=== PATIENT | female | born 1955 | race Caucasian/White ===

== ENCOUNTER → 2017-02-28 | Outpatient (CLI) | payer MEDICAID ==
--- NOTE | 2017-03-01 07:30 | BD ---
EXAMINATION TYPE: MG DEXA axial skeleton. DATE OF EXAM: 02/28/2017 COMPARISON: NONE CLINICAL HISTORY: Height: 64 Weight: 197.1 FRAX RISK QUESTIONS: Alcohol (3 or more units per day): no Family History (Parent hip fracture): no Glucocorticoids (More than 3mos): no (Ex: prednisone, prednisolone, methylprednisolone, dexamethasone, and hydrocortisone). History of Fracture in Adulthood: no Secondary Osteoporosis: 1. Type 1 Diabetes: no 2. Hyperthyroidism: no 3. Menopause before 45: yes 4. Malnutrition: no 5. Chronic liver disease: no Rheumatoid Arthritis: no Current Tobacco Use: no RISK FACTORS HISTORY OF: Surgery to Spine/Hip(right/left)/Wrist (right/left): no Family History of Osteoporosis: no Active: yes Diet low in dairy products/other sources of calcium: no Postmenopausal woman: hysterectomy age 42 lost more than 2 inches in height since high school: no Frequent falls: no Poor Health: no Hyperparathyroidism: no Adrenal Insufficiency: no MEDICATIONS: lisinopril, vitamins Prednisone or other steroids: asthma meds Additional History: EXAM MEASUREMENTS: Bone mineral densitometry was performed using the [employer] System. Bone mineral density as measured about the Lumbar spine is: ----- L1-L4(G/cm2): 1.417 T Score Values are as follows: ----- L2: 1.5 ----- L3: 2.3 ----- L4: 2.6 ----- L1-L4: 2.0 Bone mineral density has: increased 3.3 % since study of: 11.19.2012 Bone mineral density about the R hip (g/cm2): 1.208 Bone mineral density about the L hip (g/cm2): 1.261 T Score values are as follows: -----R Neck: 1.2 -----L Neck: 1.6 -----R Total: 1.7 -----L Total: 2.2 Bone mineral density has: decreased -5.3 % since study of: 11.19.2012 IMPRESSION: Normal (Values between +1 and -1 indicate normal bone mass). Consider repeating this study in 5 year s or sooner if there is some new clinical indication. NOTE: T-SCORE=SD OF THE YOUNG ADULT MEAN.
--- NOTE | 2017-03-01 09:25 | MM ---
Reason for exam: screening (asymptomatic). Last mammogram was performed 2 years and 3 months ago. History: Patient is postmenopausal. Family history of breast cancer in paternal aunt at age 60 and breast cancer in maternal cousin at age 44. Cancelled Right Needle Localization of the right breast, March 23, 2007. Benign right mammotome panel of the right breast, March 21, 2007. Benign right mammotome panel of the right breast, March 10, 2006. Physical Findings: A clinical breast exam by your physician is recommended on an annual basis and results should be correlated with mammographic findings. MG 3D Screening Mammo W/Cad Bilateral CC and MLO view(s) were taken. Prior study comparison: December 08, 2014, right breast MG 3d diag mammo w/cad RT. January 14, 2014, left breast MG work up mamm w CAD LT. Finding: There is a 0.3 mm mass in the upper outer quadrant of the right breast. Previous mammotome biopsy in the right breast. ASSESSMENT: Incomplete: need additional imaging evaluation, BI-RAD 0 RECOMMENDATION: Special view mammogram of the right breast. If lesion persists on supplemental views, image directed ultrasound is recommended. [facility] will attempt to contact patient to return for supplemental views and ultrasound if indicated.
== END | disposition home or self-care (01) ==
LOC: RADMAMWWP 15:07
PROVIDERS: ATTEND Obstetrics & Gynecology
DX: Z12.31 Encounter for screening mammogram for malignant neoplasm of breast (principal); Z13.820 Encounter for screening for osteoporosis
CPT/HCPCS: 77063; 77067; 77080

== ENCOUNTER → 2017-03-08 | Outpatient (CLI) | payer MEDICAID ==
--- NOTE | 2017-03-08 08:32 | MM ---
Reason for exam: additional evaluation requested from abnormal screening. Last mammogram was performed less than 1 month ago. History: Patient is postmenopausal. Family history of breast cancer in paternal aunt at age 60 and breast cancer in maternal cousin at age 44. Cancelled Right Needle Localization of the right breast, March 23, 2007. Benign right mammotome panel of the right breast, March 21, 2007. Benign right mammotome panel of the right breast, March 10, 2006. Physical Findings: Nurse did not find any significant physical abnormalities on exam. MG 3D Work Up W/Cad RT CC, MLO, LM, spot compression CC, and spot compression MLO view(s) were taken of the right breast. Prior study comparison: February 28, 2017, bilateral MG 3d screening mammo w/cad. December 08, 2014, right breast MG 3d diag mammo w/cad RT. December 08, 2014, right breast US breast RT. January 01, 2014, bilateral MG screening mammo w CAD. November 19, 2012, bilateral digital screening mammo w/CAD. September 13, 2010, bilateral digital screening mammo w/CAD. There are scattered fibroglandular densities. Previous mammotome biopsy within the right breast. The 10 o'clock 4mm circumscribed mass is noted to be smaller from 2010. A 6 month follow up is recommended. These results were verbally communicated with the patient and result sheet given to the patient on 03/08/17. ASSESSMENT: Probably benign, BI-RAD 3 RECOMMENDATION: Follow-up diagnostic mammogram of the right breast in 6 months.
== END | disposition home or self-care (01) ==
LOC: RADMAMWWP 06:58
PROVIDERS: ATTEND Obstetrics & Gynecology
DX: R92.8 Other abnormal and inconclusive findings on diagnostic imaging of breast (principal); Z80.3 Family history of malignant neoplasm of breast
CPT/HCPCS: 77065; G0279

== ENCOUNTER → 2017-07-19 | Outpatient (CLI) | payer OTHER ==
--- NOTE | 2017-07-19 10:56 | XR ---
EXAMINATION TYPE: XR hand complete RT DATE OF EXAM: 07/19/2017 CLINICAL HISTORY: First digit right hand pain after fall. TECHNIQUE: Frontal, lateral and oblique images of the right hand are obtained. COMPARISON: None. FINDINGS: There is no acute fracture/dislocation evident in the right hand. The joint spaces in the right hand demonstrate mild narrowing of the distal interphalangeal joints and first metacarpal phala ngeal joint. The overlying soft tissue appears unremarkable. IMPRESSION: There is no acute fracture or dislocation in the right hand.
--- NOTE | 2017-07-19 10:57 | XR ---
EXAMINATION TYPE: XR shoulder complete RT DATE OF EXAM: 07/19/2017 CLINICAL HISTORY: Right shoulder pain after fall TECHNIQUE: Three views of the right shoulder are obtained. COMPARISON: None. FINDINGS: There is no acute fracture/dislocation evident in the right shoulder. Mild right acromioc lavicular arthropathy is seen as joint space narrowing and marginal osteophytes. The acromioclavicula r and glenohumeral joint spaces appear intact. The visualized ribs are intact and unremarkable. IMPRESSION: There is no acute fracture or dislocation in the right shoulder.
== END | disposition home or self-care (01) ==
LOC: RADXRMAIN 10:25
PROVIDERS: ATTEND Emergency Medicine
DX: S40.011A Contusion of right shoulder, initial encounter (principal); S60.221A Contusion of right hand, initial encounter; M65.30 Trigger finger, unspecified finger

== ENCOUNTER → 2017-11-28 | Outpatient (CLI) | payer MEDICAID | END | disposition home or self-care (01) | LOC: LABWHC1 08:16 | PROVIDERS: ATTEND Internal Medicine | DX: G25.79 Other drug induced movement disorders (principal) | CPT/HCPCS: 36415; 84260 ==

== ENCOUNTER 2017-12-04 11:19 | Day surgery (SDC) | payer MEDICAID, OTHER ==
[2017-11-28 12:15] VITALS: BMI 32.4
[~2017-12-04 11:19] MED LIST: DEXAMETHASONE SOD PHOSPHATE 10 MG/ML 1 ML VIAL IV ONE; HYDROmorphone 0.5 MG/0.5 ML SYRINGE IVP PRN; LACTATED RINGERS 1,000 ML IV SCH; MIDAZOLAM 2 MG/2 ML VIAL IV PRN; ONDANSETRON 4 MG/2 ML VIAL IVP ONE; Pre Op ABX Message 1 EACH MISC MISCELLANE ONE; SCOPOLAMINE 1.5MG/72HR PATCH TRANSDERM ONE
[2017-12-04 11:49] VITALS: TEMP 97.9
[2017-12-04] MEDS ORDERED: LIDOCAINE 1% 20 ML VIAL (10MG/ML) FOR IV START INTRADERMA ONE (12:00)
[2017-12-04] MEDS ORDERED: LIDOCAINE 2% INJ 20 MG/ML SQ ONE ×2 (12:22→12:57)
[2017-12-04] MEDS ORDERED: ROPIVACAINE 5 MG/ML 30 ML VIAL MISCELLANE ONE ×2 (12:22→12:57)
[2017-12-04] MEDS ORDERED: MIDAZOLAM 2 MG/2 ML VIAL ONE (12:49)
[2017-12-04] MEDS ORDERED: PROPOFOL 10 MG/ML 20 ML VIAL IV ONE (12:49)
[2017-12-04] MEDS ORDERED: fentaNYL (PF) 50 MCG/ML 2 ML AMP ONE (12:49)
[2017-12-04 13:16] VITALS: RESP 18
[2017-12-04 13:49] VITALS: BP 127/78; PULSE 78
--- NOTE | 2017-12-10 19:23 | OP ---
OPERATIVE REPORT PROCEDURE DATE: 12/04/2017 PREOPERATIVE DIAGNOSIS: Right trigger thumb. POSTOPERATIVE DIAGNOSIS: Right trigger thumb. PROCEDURE PERFORMED: Right trigger thumb release. PROCEDURE: The patient was taken to the operative suite given intravenous sedation. I then performed a digital block of the thumb using combination Xylocaine and Marcaine both without Epinephrine. The hand was then prepped and draped in the usual manner. The hand was elevated, exsanguinated. The cuff was inflated 250 mmHg. A transverse incision was made in the proximal skin crease of the thumb. Blunt dissection was taken through the subcutaneous tissue to identify the neurovascular bundles. They were kept in view and gently retracted out of harm?s way while a longitudinal release of the A1 zayda was performed. The flexor pollicis longus was examined and slight swelling was noted but the tendon was intact. The tendon was gently retracted from the wound to ensure no adhesion. The wound was then thoroughly irrigated, tourniquet released. Hemostasis was acquired and the skin was closed with 5-0 nylon suture. Soft bulky dressing applied. The patient was taken to the recovery room in satisfactory condition. MMODL / IJN: [id number] /
== END 2017-12-04 14:01 | disposition home or self-care (01) ==
LOC: OR 11:19
PROVIDERS: ATTEND Orthopaedic Surgery Hand Surgery
DX: M65.311 Trigger thumb, right thumb (principal); I10 Essential (primary) hypertension; J45.909 Unspecified asthma, uncomplicated; Z79.51 Long term (current) use of inhaled steroids; Z79.899 Other long term (current) drug therapy; Z90.710 Acquired absence of both cervix and uterus; Z90.49 Acquired absence of other specified parts of digestive tract; Z87.891 Personal history of nicotine dependence
CPT/HCPCS: 26055; J2001; J2250; J1100; J2405; J3010; J2795; J2704

== ENCOUNTER 2017-12-17 09:50 | Emergency (ER) | payer MEDICAID ==
[2017-12-17 10:00] VITALS: RESP 18
[2017-12-17] MEDS ORDERED: ORPHENADRINE 30 MG/ML 2 ML VIAL IM STA (10:32)
[2017-12-17] MEDS ORDERED: KETOROLAC 60 MG/2 ML VIAL IM STA (10:32)
--- NOTE | 2017-12-17 10:34 | ED ---
Lower Extremity Injury HPI - General Chief Complaint: Extremity Injury, Lower Stated Complaint: RT KNEE PAIN/INJURY Time Seen by Provider: 12/17/17 10:07 Source: patient, RN notes reviewed, old records reviewed Mode of arrival: ambulatory Limitations: no limitations - History of Present Illness Initial Comments: Patient is a 8-year-old female presents emergency department today with chief complaint of right knee pain and leg pain. Patient reports that symptoms started abruptly 4 days ago when she was getting out of her truck. She reports that she'll pulling sensation in her leg. She states the pain has been persistent since that time. Yesterday when she went to get up and her truck after going to she felt a sharp pain that radiated down her entire leg. 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 She denies any redness or swelling to the leg. Patient states that she has had no fevers or chills. No shortness of breath or chest pains. She denies any peripheral paresthesias. Patient relates that she has had no history of blood clots in the past. Recent right thumb trigger finger surgery by Dr. Grande. - Related Data Home Medications Medication Instructions Recorded Confirmed Budesonide/Formoterol Fumarate 1 puff INHALATION RT-DAILY 06/04/15 12/04/17 [Symbicort 80-4.5 Mcg Inhaler] Lisinopril [Zestril] 20 mg PO DAILY 06/04/15 12/04/17 Omeprazole 20 mg PO BID PRN 06/04/15 12/04/17 Ibuprofen [Motrin] 200 - 400 mg PO Q4-6H PRN 06/25/15 12/04/17 Acetaminophen [Tylenol Extra 500 - 1,000 mg PO Q4-6H PRN 11/28/17 12/04/17 Strength] Multivitamins, Thera [Multivitamin 1 tab PO DAILY 11/28/17 12/04/17 (formulary)] Previous Rx's Medication Instructions Recorded Cyclobenzaprine [Flexeril] 10 mg PO TID #12 tab 12/17/17 traMADol HCL [Ultram] 50 mg PO Q4-6H #12 tab 12/17/17 Allergies Allergy/AdvReac Type Severity Reaction Status Date / Time No Known Allergies Allergy Verified 12/17/17 10:00 Review of Systems ROS Statement: Those systems with pertinent positive or pertinent negative responses have been documented in the HPI. ROS Other: All systems not noted in ROS Statement are negative. Past Medical History Past Medical History: Asthma, GERD/Reflux, Hypertension, Musculoskeletal Disorder Additional Past Medical History / Comment(s): HX - High seritonin levels (was tested at [facility] for carcinoid tumor, negative findings) 2002. RT THUMB TRIGGER FINGER, WEARING BRACE. VARICOSE VEIN RLE. History of Any Multi-Drug Resistant Organisms: None Reported Past Surgical History: Bladder Surgery, Cholecystectomy, Hysterectomy, Orthopedic Surgery, Tonsillectomy Additional Past Surgical History / Comment(s): Monarc suburethral sling, bilateral feet-plantar fascitis surgery. COLONOSCOPY. Past Anesthesia/Blood Transfusion Reactions: Motion Sickness Additional Past Anesthesia/Blood Transfusion Reaction / Comment(s): (Pt is mildly claustrophobia) Past Psychological History: Anxiety Smoking Status: Former smoker Past Alcohol Use History: Occasional Past Drug Use History: None Reported - Past Family History Father Family Medical History: Respiratory Disorder Additional Family Medical History / Comment(s): Father was exposed to chemicals at work-inhaled. He of lung problems at age 46 yrs. Mother Family Medical History: Hypertension, Thyroid Disorder Additional Family Medical History / Comment(s): Mother is 83 yrs old. General Exam - General Exam Comments Initial Comments: 62-year-old female. Alert and oriented 3. Patient appears in no acute distress. Limitations: no limitations General appearance: alert, in no apparent distress Eye exam: Present: normal appearance, PERRL, EOMI. Absent: scleral icterus, conjunctival injection, periorbital swelling ENT exam: Present: normal exam, mucous membranes moist Neck exam: Present: normal inspection. Absent: tenderness, meningismus, lymphadenopathy Respiratory exam: Present: normal lung sounds bilaterally. Absent: respiratory distress, wheezes, rales, rhonchi, stridor Cardiovascular Exam: Present: regular rate, normal rhythm, normal heart sounds. Absent: systolic murmur, diastolic murmur, rubs, gallop, clicks GI/Abdominal exam: Present: soft, normal bowel sounds. Absent: distended, tenderness, guarding, rebound, rigid Extremities exam: Present: normal inspection, full ROM, normal capillary refill. Absent: tenderness, pedal edema, joint swelling, calf tenderness Back exam: Present: normal inspection Neurological exam: Present: alert, oriented X3, CN II-XII intact Psychiatric exam: Present: normal affect, normal mood Course Vital Signs 12/17/17 09:57 Temperature 97.9 F Pulse Rate 84 Respiratory 18 Rate Blood Pressure 139/90 O2 Sat by Pulse 98 Oximetry Medical Decision Making - Medical Decision Making 62-year-old female presents emergency department today with chief complaint of right leg pain. Patient reports is worse after she was getting out of car yesterday. Patient states that she's had no fevers or chills. She denies any significant swelling the leg. Patient has full range of motion of the leg. She has no signs of DVT and doppler us and X-RAY WAS NORMAL. PATIENT APPEARS TO HAVE A PULLED HAMSTRING TO PALPATION OVER THE MEDIAL SARTORIUS.. DISCUSSED A TEMPERATURE MEDICATION, MUSCLE RELAXERS. DISCUSSED THAT SHE CAN FOLLOW-UP WITH ORTHOPEDIC. ALL QUESTIONS ANSWERED RETURN PARAMETERS WERE DISCUSSED. - Radiology Data Radiology results: report reviewed Ultrasound is negative for DVT. Given his negative for any acute osseous lesion. Disposition Clinical Impression: Leg pain, right, Hamstring injury Disposition: HOME SELF-CARE Condition: Good Instructions: Hamstring Injury (ED) Additional Instructions: Patient advised to follow-up with orthopedic. Return to emergency department if any alarming signs or symptoms occur. Prescriptions: Cyclobenzaprine [Flexeril] 10 mg PO TID #12 tab traMADol HCL [Ultram] 50 mg PO Q4-6H #12 tab Is patient prescribed a controlled substance at d/c from ED?: Yes When asked, does pt state using other controlled substances?: No If prescribed controlled substance>3 days was MAPS reviewed?: Prescribed <3 Days If opioid is for acute pain is fill amount 7 days or less?: Yes If Rx opioid, was Start Talking consent form obtained?: Yes Referrals: Vanessa Page MD [Primary Care Provider] - 1-2 days Angel Sullivan MD [Medical Doctor] - 1-2 days Time of Disposition: 12:15
--- NOTE | 2017-12-17 10:58 | XR ---
EXAMINATION TYPE: XR knee complete RT , 3 VIEWS DATE OF EXAM ORDERED: 12/17/2017 HISTORY: Pain. COMPARISON: None. FINDINGS: No fracture, dislocation or joint effusion is seen. Joint spaces reasonably well-maintaine d. IMPRESSION: NO ACUTE OSSEOUS LESION.
--- NOTE | 2017-12-17 11:58 | US ---
EXAMINATION TYPE: US venous doppler duplex LE RT DATE OF EXAM: 12/17/2017 11:38 AM COMPARISON: NONE CLINICAL HISTORY: Pain. Pain right leg for 2 days SIDE PERFORMED: Right TECHNIQUE: The lower extremity deep venous system is examined utilizing real time linear array sonog chad with graded compression, doppler sonography and color-flow sonography. VESSELS IMAGED: External Iliac Vein (EIV) Common Femoral Vein Deep Femoral Vein Greater Saphenous Vein * Femoral Vein Popliteal Vein Small Saphenous Vein * Proximal Calf Veins (* superficial vessels) Right Leg: No evidence of DVT No popliteal fossa lesion is seen. IMPRESSION: THIS EXAMINATION IS NEGATIVE FOR DVT WITHIN THE RIGHT LEG.
[2017-12-17 12:31] VITALS: BP 138/87; PULSE 80; TEMP 98
== END 2017-12-17 12:30 | disposition home or self-care (01) ==
LOC: EC 09:50
DX: S89.91XA Unspecified injury of right lower leg, initial encounter (principal); J45.909 Unspecified asthma, uncomplicated; I10 Essential (primary) hypertension; Z87.891 Personal history of nicotine dependence; Z79.51 Long term (current) use of inhaled steroids; Z79.899 Other long term (current) drug therapy; Z98.890 Other specified postprocedural states; X58.XXXA Exposure to other specified factors, initial encounter; Y93.89 Activity, other specified
CPT/HCPCS: 73562; 93971; 99284; 96372 ×2; J2360; J1885

== ENCOUNTER → 2018-02-15 | Outpatient (CLI) | payer MEDICAID ==
--- NOTE | 2018-02-15 13:07 | MR ---
EXAMINATION TYPE: MR knee RT wo con DATE OF EXAM: 02/15/2018 COMPARISON: Plain film 12/17/2017 HISTORY: Right knee pain TECHNIQUE: Multiplanar, multisequence imaging of the knee is performed without IV contrast. FINDINGS: MEDIAL MENISCUS: Posterior horn of the medial meniscus shows a vertical complete tear proximal to the root anchor LATERAL MENISCUS: Anterior and posterior horns are intact without tear. CRUCIATE LIGAMENTS: The anterior and posterior cruciate ligaments are intact and unremarkable. COLLATERAL LIGAMENTS: The medial collateral ligament and lateral collateral ligament complex are inta ct and unremarkable. EXTENSOR MECHANISM: Visualized quadriceps and patellar tendons are intact. EFFUSION: Minimal effusion noted POPLITEAL CYST: There is a small semimembranosus gastrocnemius cyst although there is some fluid sig nal extending into the soft tissues posterior and medial to the metaphyseal femur as well as posterio rly and medially within the musculature of the leg which may indicate rupture, evaluation is incomple te TRICOMPARTMENT SPACES: Relatively maintained CARTILAGE: Grade 2 to grade III chondromalacia present medial femoral condyle and medial tibia, poste rior patella shows grade 3 to grade IV chondromalacia BONE MARROW SIGNAL: Some probable reactive marrow signal change along the proximal tibia medially OTHER: Varicosity noted incidentally along the medial leg at the level of the joint IMPRESSION: Tear of the posterior horn the medial meniscus, osteoarthritis, Rogers's cyst as described, and additi onal findings above.
== END ==
LOC: RADMRIMAIN 09:17
PROVIDERS: ATTEND Orthopaedic Surgery
DX: S83.241A Other tear of medial meniscus, current injury, right knee, initial encounter (principal); M17.11 Unilateral primary osteoarthritis, right knee; M71.21 Synovial cyst of popliteal space [Baker], right knee

== ENCOUNTER → 2018-03-05 | Outpatient (CLI) | payer MEDICAID ==
--- NOTE | 2018-03-06 08:58 | MM ---
Reason for exam: additional evaluation requested from prior study. Last mammogram was performed 1 year ago. History: Patient is postmenopausal. Family history of breast cancer in paternal aunt at age 60 and breast cancer in maternal cousin at age 44. Cancelled Right Needle Localization of the right breast, March 23, 2007. Benign right mammotome panel of the right breast, March 21, 2007. Benign right mammotome panel of the right breast, March 10, 2006. Physical Findings: Nurse did not find any significant physical abnormalities on exam. MG 3D Diag Mammo W/Cad MARELY Bilateral CC and MLO view(s) were taken. Prior study comparison: March 08, 2017, right breast MG 3d work up w/cad RT. February 28, 2017, bilateral MG 3d screening mammo w/cad. The breast tissue is heterogeneously dense. This may lower the sensitivity of mammography. Benign calcifications. There is chronic nodularity bilaterally. There is no discrete abnormality. No significant new findings when compared with previous films. These results were verbally communicated with the patient and result sheet given to the patient on 03/05/18. ASSESSMENT: Benign, BI-RAD 2 RECOMMENDATION: Routine screening mammogram of both breasts in 1 year.
== END | disposition home or self-care (01) ==
LOC: RADMAMWWP 07:42
PROVIDERS: ATTEND Obstetrics & Gynecology
DX: R92.8 Other abnormal and inconclusive findings on diagnostic imaging of breast (principal)
CPT/HCPCS: 77062; 77066

== ENCOUNTER → 2018-03-16 | Outpatient (CLI) | payer MEDICAID ==
[2018-03-16 13:44] LABS: INR 0.9 (<1.2); Partial Thromboplastin Time 25.4 sec (22.0-30.0); Prothrombin Time 9.7 sec (9.0-12.0)
[2018-03-16 13:45] LABS: HCT 45.2 % (34.0-46.0); HGB 14.4 gm/dL (11.4-16.0); MCH 27.3 pg (25.0-35.0); MCV 85.5 fL (80.0-100.0); Mean Platelet Volume 6.5; Platelet Count 365 k/uL (150-450); RBC 5.28 m/uL (3.80-5.40); WBC 8.1 k/uL (3.8-10.6)
[2018-03-16 13:48] LABS: Anion Gap 7 mmol/L; Blood Urea Nitrogen 22 mg/dL (7-17); Carbon Dioxide 31 mmol/L (22-30); Chloride 101 mmol/L (98-107); Glucose 102 mg/dL (74-99); Potassium 4.9 mmol/L (3.5-5.1); Sodium 139 mmol/L (137-145)
== END | disposition home or self-care (01) ==
LOC: LABPAT 12:08
PROVIDERS: ATTEND Internal Medicine
DX: Z01.812 Encounter for preprocedural laboratory examination (principal); I10 Essential (primary) hypertension
CPT/HCPCS: 80051; 82565; 82947; 84520; 85027; 85610; 85730

== ENCOUNTER 2018-03-21 11:20 | Day surgery (SDC) | payer MEDICAID ==
[~2018-03-21 11:20] MED LIST changes: -HYDROmorphone 0.5 MG/0.5 ML SYRINGE IVP PRN; +LIDOCAINE 1% 20 ML VIAL (10MG/ML) FOR IV START INTRADERMA PRN; +MIDAZOLAM (PF) 2 MG/2 ML VIAL IV PRN; -MIDAZOLAM 2 MG/2 ML VIAL IV PRN
[2018-03-21 11:57] VITALS: RESP 16
[2018-03-21] MEDS ORDERED: LIDOCAINE 1% 20 ML VIAL (10MG/ML) FOR IV START INTRADERMA ONE (12:00)
[2018-03-21] MEDS ORDERED: PROPOFOL 10 MG/ML 20 ML VIAL IV ONE (12:31)
[2018-03-21] MEDS ORDERED: SUCCINYLCHOLINE CHLORIDE 100 MG/5 ML SYR IV ONE (12:31)
[2018-03-21] MEDS ORDERED: fentaNYL (PF) 50 MCG/ML 2 ML AMP ONE (12:31)
[2018-03-21] MEDS ORDERED: KETOROLAC 30 MG/ML 1 ML VIAL ONE (12:31)
[2018-03-21] MEDS ORDERED: MIDAZOLAM 2 MG/2 ML VIAL ONE (12:31)
[2018-03-21] MEDS ORDERED: LIDOCAINE 1% INJ 10MG/ML (20 ML MDV) ONE (12:31)
[2018-03-21] MEDS ORDERED: SODIUM CHLORIDE 0.9% 50 ML with ceFAZolin 2,000 MG IV ONE ×2 (12:45)
[2018-03-21] MEDS ORDERED: BUPIVACAIN-EPI 0.25%-1:200,000 30 ML VIAL SQ ONE (13:02)
[2018-03-21 13:31] VITALS: TEMP 98.1
[2018-03-21] MEDS: HYDROmorphone 0.5 MG/0.5 ML SYRINGE IVP PRN ×4 (13:44→14:06)
[2018-03-21 14:42] VITALS: BP 108/62; PULSE 74
--- NOTE | 2018-03-21 21:01 | OP ---
OPERATIVE REPORT DATE OF PROCEDURE: 03/21/2018. PREOPERATIVE DIAGNOSES: 1. Right knee medial meniscus tear. 2. Right knee chondromalacia, medial compartment of the knee. POSTOPERATIVE DIAGNOSES: 1. Right knee posterior horn medial meniscus tear. 2. Right knee chondromalacia of the medial femoral condyle with loose chondral flaps. PROCEDURE PERFORMED: 1. Right knee arthroscopic partial medial meniscectomy. 2. Right knee arthroscopic chondroplasty of the medial femoral condyle. SURGEON: Maxwell Abrams M.D. ANESTHESIA: General endotracheal. ESTIMATED BLOOD LOSS: Was minimal. TOURNIQUET: None. DRAINS: None. COMPLICATIONS: None apparent. DISPOSITION: Postanesthesia care unit. INDICATIONS: Marissa is a very pleasant 63-year-old female who had a twisting injury right knee. Physical examination and MRI are consistent with tearing of the posterior horn of the medial meniscus. She also has noted mild medial compartment chondral degeneration. I had a long discussion with her with regard to treatment options. She has been through fairly significant prolonged course of nonoperative treatment. At this point, she does wish to proceed with operative intervention. The risks were explained to the patient which include, but are not limited to risk of infection, nerve damage, bleeding, pain, and a small risk of deep vein thrombosis which could lead to fatal pulmonary embolism. The patient understands these risks and wished to proceed with surgical procedure. Examination under anesthesia range of motion right mild, left full , effusion right mild, left none. Sofie right normal with good end point. Left normal with good end point. Pivot shift right grade 0, left grade 0. Posterior drawer right with good end point. Left normal with good end point. Varus laxity right none, left none; valgus laxity right none, left none. External rotation right normal. Left normal. ARTHROSCOPIC FINDINGS: Suprapatellar pouch was normal. Medial gutter normal lateral gutter normal. Patella diffuse grade 2 change. Trochlea diffuse grade 2 change in the central aspect of the trochlea. Patellar tracking is normal. Medial femoral condyle. Diffuse grade 2-3 change on the weightbearing surface of the medial femoral condyle. There were loose chondral flaps of the periphery of the condyle. There was also loose chondral flaps noted within the medial compartment. Medial tibial plateau grade 1 change, medial meniscus complex tear of the posterior horn of the medial meniscus. Lateral femoral condyle: Normal chondral surfaces. Lateral tibial plateau: Normal chondral surfaces. Lateral meniscus was normal. Anterior cruciate ligament normal. Posterior cruciate ligament normal. DESCRIPTION OF THE PROCEDURE: Patient identified in preoperative holding area. Surgical site was marked by both the patient and myself. She was given 2 g of Ancef IV for prophylactic purposes. She was then transported to the operative suite. She was placed supine on the operative table. A general anesthetic was then administered and dosed per the anesthesia without apparent complication. Examination under anesthesia was then performed of both knees. The findings noted above. Tourniquet was then placed high on the right upper thigh well-padded in preparation for surgery. The tourniquet was not inflated throughout the entire procedure. The patient's right lower extremity was then prepped and draped in usual sterile fashion. Standard surgical pause undertaken to ensure that we were operating on the correct site and that appropriate preoperative antibiotics were given. All staff in room in agreement and we proceeded. The knee was then inflated with 120 mL sterile saline solution. This was done to gradually distend the joint. A standard inferolateral portal was then made. The 30 degree arthroscope was introduced into the suprapatellar pouch. The pump pressure was set to a 60 mmHg and maintained at that level throughout the entire case. Next utilizing an 18-gauge spinal needle topical localized placement. The inferomedial port was made under direct visualization. A standard diagnostic arthroscopy of the knee was then performed. The findings noted above. Attention then drawn to the medial compartment. She had a complex degenerative tear of the posterior horn of the medial meniscus. This tear was deemed irreparable. This was through the red-white junction. The meniscus tear was then debrided with a combination of biters and a shaver back to stable tissue. Approximately 50% of the posterior horn of the middle meniscus remained. The medial meniscus remained intact after debridement. The middle body and anterior horn were 100% intact. The anterior and posterior root attachments were carefully inspected and found to be intact. Next, the arthroscope was placed medial to the posterior cruciate ligament through the notch in the posteromedial compartment knee. No residual flap tears or loose bodies noted. The posterior root attachment was further inspected and found to be intact. Attention drawn to the medial femoral condyle. She had several areas of loose chondral flaps around the periphery. These were very gently debrided with a synovial shaver back to stable rim of cartilage. There was no areas of grade 4 chondral degeneration but significant area of grade 3 degeneration throughout the medial femoral condyle. At this point time, no further work was deemed necessary. The knee was thoroughly irrigated and drained outflow cannula. The arthroscope was removed from the knee. The arthroscopic portals were closed with 3-0 nylon interrupted suture. Sterile compressive dressing was then applied. All sponge and needle counts were deemed correct prior to closure. The patient tolerated the procedure without apparent complication. The tourniquet was not inflated throughout the entire procedure. She was transferred recovery room in stable condition. MMODL / IJN: [id number] /
== END 2018-03-21 15:11 | disposition home or self-care (01) ==
LOC: OR 11:20
PROVIDERS: ATTEND Orthopaedic Surgery Sports Medicine
DX: S83.241A Other tear of medial meniscus, current injury, right knee, initial encounter (principal); X50.1XXA Overexertion from prolonged static or awkward postures, initial encounter; M94.261 Chondromalacia, right knee; I10 Essential (primary) hypertension; K21.9 Gastro-esophageal reflux disease without esophagitis; J44.9 Chronic obstructive pulmonary disease, unspecified; E34.0 Carcinoid syndrome; Z87.891 Personal history of nicotine dependence; Z79.1 Long term (current) use of non-steroidal anti-inflammatories (NSAID); Z79.891 Long term (current) use of opiate analgesic; Z79.51 Long term (current) use of inhaled steroids; Z79.899 Other long term (current) drug therapy
CPT/HCPCS: 29881; J2250; J1100; J2405; J2001; J3010; J1885; J0690; J0330; J2704; J1170

== ENCOUNTER → 2019-04-02 | Outpatient (CLI) | payer OTHER ==
--- NOTE | 2019-04-04 14:36 | MM ---
Reason for exam: screening (asymptomatic). Last mammogram was performed 1 year and 1 month ago. History: Patient is postmenopausal. Family history of breast cancer in paternal aunt at age 60 and breast cancer in maternal cousin at age 44. Cancelled Right Needle Localization of the right breast, March 23, 2007. Benign right mammotome panel of the right breast, March 21, 2007. Benign right mammotome panel of the right breast, March 10, 2006. Physical Findings: A clinical breast exam by your physician is recommended on an annual basis and results should be correlated with mammographic findings. MG Screening Mammo w CAD Bilateral CC and MLO view(s) were taken. Prior study comparison: March 05, 2018, bilateral MG 3d diag mammo w/cad [facility]. March 08, 2017, right breast MG 3d work up w/cad RT. The breast tissue is heterogeneously dense. This may lower the sensitivity of mammography. No significant changes when compared with prior studies. ASSESSMENT: Benign, BI-RAD 2 RECOMMENDATION: Routine screening mammogram of both breasts in 1 year.
== END | disposition home or self-care (01) ==
LOC: RADMAMWWP 13:18
PROVIDERS: ATTEND Obstetrics & Gynecology
DX: Z12.31 Encounter for screening mammogram for malignant neoplasm of breast (principal)
CPT/HCPCS: 77067

== ENCOUNTER → 2020-04-17 | Outpatient (CLI) | payer OTHER ==
--- NOTE | 2020-04-20 11:34 | MM ---
Reason for exam: screening (asymptomatic). Last mammogram was performed 1 year and 1 month ago. History: Patient is postmenopausal. Family history of breast cancer in paternal aunt at age 60 and breast cancer in maternal cousin at age 44. Cancelled Right Needle Localization of the right breast, March 23, 2007. Benign right mammotome panel of the right breast, March 21, 2007. Benign right mammotome panel of the right breast, March 10, 2006. Took hormonal contraceptives for 10 years. Physical Findings: A clinical breast exam by your physician is recommended on an annual basis and results should be correlated with mammographic findings. MG Screening Mammo w CAD Bilateral CC and MLO view(s) were taken. Prior study comparison: April 02, 2019, bilateral MG screening mammo w CAD. March 05, 2018, bilateral MG 3d diag mammo w/cad [facility]. There are scattered fibroglandular densities. Previous mammotome biopsy in the right breast x 2. No significant changes when compared with prior studies. ASSESSMENT: Negative, BI-RAD 1 RECOMMENDATION: Routine screening mammogram of both breasts in 1 year.
== END | disposition home or self-care (01) ==
LOC: RADMAMWWP 07:07
PROVIDERS: ATTEND Obstetrics & Gynecology
DX: Z12.31 Encounter for screening mammogram for malignant neoplasm of breast (principal)
CPT/HCPCS: 77067

== ENCOUNTER → 2023-11-11 | Outpatient (CLI) | payer MEDICARE ==
[2023-11-11 09:44] LABS: Basophils # (A) 0.1 k/uL (0-0.2); Basophils % (A) 1 %; Eosinophils # (A) 0.3 k/uL (0-0.7); Eosinophils % (A) 3 %; HCT 42.2 % (34.0-46.0); HGB 13.6 gm/dL (11.4-16.0); Lymphocytes # (A) 2.4 k/uL (1.0-4.8); Lymphocytes % (A) 24 %; MCH 27.3 pg (25.0-35.0); MCHC 32.2 g/dL (31.0-37.0); MCV 84.7 fL (80.0-100.0); Monocytes # (A) 0.5 k/uL (0-1.0); Monocytes % (A) 5 %; Neutrophils # (A) 6.8 k/uL (1.3-7.7); Neutrophils % (A) 66 %; Platelet Count 391 k/uL (150-450); RBC 4.98 m/uL (3.80-5.40); RDW 14.9 % (11.5-15.5); WBC 10.3 k/uL (3.8-10.6)
[2023-11-11 09:57] LABS: ALT 37 U/L (4-34); AST 31 U/L (14-36); African American GFR (CKD) >90 (>60 ml/min/1.73 sqM); Alkaline Phosphatase 71 U/L (38-126); Anion Gap 9 mmol/L; Blood Urea Nitrogen 14 mg/dL (7-17); Calcium 9.7 mg/dL (8.4-10.2); Carbon Dioxide 30 mmol/L (22-30); Chloride 101 mmol/L (98-107); Glucose 127 mg/dL (74-99); Non-African American GFR(CKD) 79 (>60 ml/min/1.73 sqM); Potassium 4.4 mmol/L (3.5-5.1); Sodium 140 mmol/L (137-145); Total Bilirubin 0.5 mg/dL (0.2-1.3); Total Protein 6.8 g/dL (6.3-8.2)
[2023-11-11 12:52] LABS: Chol/HDL Ratio 3.37 Ratio; LDL Cholesterol,Calculated 95.4 mg/dL (0.0-131.0)
== END | disposition home or self-care (01) ==
LOC: LABT 08:34
PROVIDERS: ATTEND Nurse Practitioner Family
DX: Z00.00 Encounter for general adult medical examination without abnormal findings (principal); Z87.891 Personal history of nicotine dependence
CPT/HCPCS: 80053; 80061; 85025

== ENCOUNTER → 2023-12-25 | Outpatient (CLI) | payer MEDICARE ==
--- NOTE | 2023-12-26 10:16 | MM ---
Reason for Exam: Screening (asymptomatic). Last mammogram was performed 1 year(s) and 8 month(s) ago. Patient History: Menarche at age 14. First Full-Term at age 22. Hysterectomy at age 42. Postmenopausal. Patient used Hormonal Contraceptives for 10 years. 03/21/2007, Benign Core Biopsy on the right side. 03/10/2006, Benign Core Biopsy on the right side. 03/23/2007, Cancelled Right Needle Localization on the right side. Maternal cousin had breast cancer, age 44. Paternal aunt had breast cancer, age 60. Risk Values: Clara 5 year model risk: 2.3%. NCI Lifetime model risk: 8.0%. Prior Study Comparison: 02/28/2017 Bilateral Screening Mammogram, [facility]. 03/08/2017 Right Diagnostic Mammogram, [facility]. 03/05/2018 Bilateral Diagnostic Mammogram, [facility]. 04/02/2019 Bilateral Screening Mammogram, [facility]. 04/17/2020 Bilateral Screening Mammogram, [facility]. 04/15/2022 Bilateral Screening Mammogram, [facility]. Tissue Density: There are scattered areas of fibroglandular density. Findings: Analyzed By CAD. There is no suspicious group of microcalcifications or new suspicious mass in either breast. Overall Assessment: Benign, BI-RAD 2 Management: Screening Mammogram of both breasts in 1 year. . Patient should continue monthly self-breast exams. A clinical breast exam by your physician is recommended on an annual basis. This exam should not preclude additional follow-up of suspicious palpable abnormalities. Note on Clara scores and lifetime risk: 1. A Clara score greater than 3% is considered moderate risk. If this is the case, consider specialist referral to assess eligibility for a risk reducing agent. 2. If overall lifetime risk for the development of breast cancer is 20% or higher, the patient may qualify for future screening with alternating mammogram and breast MRI. [facility], , 12/26/2023 10:13 AM. Electronically signed and approved by: Anthony Curtis M.D. [facility]
== END | disposition home or self-care (01) ==
LOC: RADMAMWWP 07:03
PROVIDERS: ATTEND Family Medicine
DX: Z12.31 Encounter for screening mammogram for malignant neoplasm of breast (principal); Z78.0 Asymptomatic menopausal state; Z80.3 Family history of malignant neoplasm of breast; R92.323 Mammographic fibroglandular density, bilateral breasts
CPT/HCPCS: 77063; 77067